=== PATIENT | female | born 1955 | race Hispanic/Latino ===

== ENCOUNTER 2017-05-13 06:02 | Day surgery (SDC) | payer MEDICARE ==
[2017-05-01 10:49] VITALS: BMI 20.5
[2017-05-13] MEDS ORDERED: Iohexol 240 (50 ml) ONE (07:20)
[2017-05-13] MEDS ORDERED: cefTRIAXone (Rocephin) 1 gm Inj ONE (07:20)
[2017-05-13] MEDS ORDERED: Propofol 10 mg/ml Inj (20 ML) ONE (08:00)
[2017-05-13] MEDS ORDERED: Lidocaine 1% Inj (20ml) ONE (08:01)
[2017-05-13 08:55] VITALS: TEMP 97.4
[2017-05-13 09:42] VITALS: BP 158/82; PULSE 57; RESP 18; O2SAT 93
[2017-05-13] MEDS: Tmp-Smz 800 mg-160 mg DS Tab PO SCH ×2 (10:15→10:18)
--- NOTE | 2017-05-13 11:35 | RAD ---
PROCEDURE: Less than 1 hr fluoroscopic time utilized during performance of the procedure. HISTORY: Bilateral retrograde pyelograms COMPARISON: None TECHNIQUE: Total fluoroscopic time (continuous mode) utilized during the procedure: 43.5 seconds. Total exam DLP: (mGy): 6.06 FINDINGS: Bilateral retrograde studies performed. No gross abnormalities identified. IMPRESSION: Less than 1 hr fluoroscopic time utilized during performance of the procedure.
--- NOTE | 2017-05-13 15:30 | OP ---
PROCEDURE DATE: 05/13/2017 PREOPERATIVE DIAGNOSIS: Microhematuria. POSTOPERATIVE DIAGNOSIS: Bladder neck cyst. PROCEDURE: Cystoscopy, excision of bladder neck cyst, and bilateral retrograde ureteral pyelogram. SURGEON: Lang Chavez MD ANESTHESIA: LMA. DESCRIPTION OF OPERATION: After adequate LMA anesthesia was given, the patient was placed lithotomy, prepped and draped in usual manner. A 22-Wolof cystourethroscope was introduced. Inspection showed a yellowish cyst at the bladder neck on the left side. The bladder itself showed no tumors, foreign bodies or stones. Orifices were normal in appearance and location, and with clear efflux. No significant trabeculation. Using cold cup forceps, the cyst was excised and the base cauterized. It had a yellowish inferior and no other abnormalities noted. An occlusion to catheter was placed at the opening of the left ureteral orifice. Ureteropyelogram was carried out, which appeared normal to me with no filling defects. A similar procedure was done on the right side also, appeared normal with no filling defects. There was no evidence any bleeding. The area of the bladder neck was reinspected. There was no evidence of any bleeding. Without any irrigation running, the bladder was drained, the cystoscope was removed, and the patient was awake and brought to the recovery room good condition. Lang Chavez MD
== END 2017-05-13 11:30 | disposition home or self-care (01) ==
LOC: SDS 06:02
PROVIDERS: ATTEND Urology
DX: N32.89 Other specified disorders of bladder (principal); R31.29 Other microscopic hematuria; I10 Essential (primary) hypertension; F17.210 Nicotine dependence, cigarettes, uncomplicated; J43.9 Emphysema, unspecified; E03.9 Hypothyroidism, unspecified
CPT/HCPCS: 52005; 52224; 74420; 88305; C1758; J2175; J2405; J2704; J3010; J7120; Q9966

== ENCOUNTER 2017-06-27 19:05 | Emergency (ER) | payer MEDICARE ==
[2017-06-27 19:05] VITALS: BMI 24.8
[2017-06-27 20:02] VITALS: RESP 17
--- NOTE | 2017-06-27 20:39 | ED PDOC ---
Arrival/HPI - General Chief Complaint: Back Pain Time Seen by Provider: 06/27/17 19:12 Historian: Patient - History of Present Illness Narrative History of Present Illness (Text): you were treated in the ED today for having lower lumbar back pain after picking up a child about 2 days ago and, and you were otherwise without any trauma/fall/nausea/vomiting/headache/dizziness/difficulty breathing/chest pain/ abdomen pain/numbness/tingling/loss of limb or bladder or bowel function/ thoughts to harm yourself or others or hallucinations. 06/27/17 20:36 Time/Duration: Other (2 days) Symptom Onset: Gradual Symptom Course: Unchanged Quality: Aching Severity Level: 2 Activities at Onset: Rest Context: Sitting Past Medical History - Provider Review Nursing Documentation Reviewed: Yes - Travel History Have you recently traveled outside [place] w/in the past 3 mons?: No - Infectious Disease Hx of Infectious Diseases: None - Tetanus Immunization Tetanus Immunization: Unknown - Cardiac Hx Cardiac Disorders: Yes Hx Hypertension: Yes - Pulmonary Hx Respiratory Disorders: Yes Hx Chronic Obstructive Pulmonary Disease (COPD): Yes - Neurological Hx Neurological Disorder: No - HEENT Hx HEENT Disorder: Yes Hx Cataracts: Yes - Renal Hx Renal Disorder: No - Endocrine/Metabolic Hx Endocrine Disorders: Yes Hx Hypothyroidism: Yes - Hematological/Oncological Hx Blood Transfusions: No - Integumentary Hx Dermatological Disorder: No - Musculoskeletal/Rheumatological Hx Musculoskeletal Disorders: Yes Hx Back Pain: Yes - Gastrointestinal Hx Gastrointestinal Disorders: No - Genitourinary/Gynecological Hx Genitourinary Disorders: No - Psychiatric Hx Psychophysiologic Disorder: Yes Hx Anxiety: Yes Hx Depression: Yes Hx Substance Use: No - Surgical History Hx Eye Surgery: Yes (CATARACT) Hx Orthopedic Surgery: Yes (CERVICAL SPINE) Other/Comment: CYSTOSCOPY - Anesthesia Hx Anesthesia: Yes - Suicidal Assessment Feels Threatened In Home Enviroment: No Family/Social History - Physician Review Nursing Documentation Reviewed: Yes Family/Social History: No Known Family HX Smoking Status: Former Smoker Hx Alcohol Use: No Hx Substance Use: No Substance used: Marijuana Hx Substance Use Treatment: No Allergies/Home Meds Allergies/Adverse Reactions: Allergies codeine Allergy (Intermediate, Verified 06/27/17 19:10) PAIN ABD PAIN Penicillins Allergy (Intermediate, Verified 06/27/17 19:10) RASH HIVES Home Medications: Home Meds Medication Instructions Recorded Confirmed Amitriptyline [Elavil] 75 mg PO HS 07/12/15 06/27/17 DULoxetine [Cymbalta] 60 mg PO BID 07/12/15 06/27/17 Diazepam 10 mg PO TID 07/12/15 06/27/17 Levothyroxine Sodium 100 mcg PO QAM 07/12/15 06/27/17 Losartan/Hydrochlorothiazide 1 tab PO QAM 07/12/15 06/27/17 [Losartan-Hctz 100-12.5 mg Tab] Albuterol 0.042% [Albuterol 0.042% 3 ml IH PRN PRN 05/24/16 06/27/17 Inhal Daija (1.25mg/3ml) UD] Atorvastatin [Lipitor] 40 mg PO DAILY 07/03/16 06/27/17 Acetaminophen/Hydrocodone Bi 1 tab PO QPM PRN 05/01/17 06/27/17 [Vicodin 300 mg-5 mg] Lurasidone HCl [Latuda] 20 mg PO QAM 05/01/17 06/27/17 Potassium Chloride [Klor-Con 10 meq PO DAILY 05/01/17 06/27/17 Sprinkle] Review of Systems - Review of Systems Constitutional: Normal Eyes: Normal ENT: Normal Respiratory: Normal Cardiovascular: Normal Gastrointestinal: Normal Genitourinary Female: Normal Musculoskeletal: Back Pain Skin: Normal Neurological: Normal Endocrine: Normal Hemo/Lymphatic: Normal Psychiatric: Normal Physical Exam Vital Signs Reviewed: Yes Vital Signs Temp Pulse Resp BP Pulse Ox 06/27/17 22:50 98.1 F 78 17 177/81 H 98 06/27/17 19:13 98.2 F 72 17 185/104 H 89 L Temperature: Afebrile Blood Pressure: Hypertensive Pulse: Regular Respiratory Rate: Normal Appearance: Positive for: Well-Appearing, Non-Toxic, Comfortable Pain Distress: None Mental Status: Positive for: Alert and Oriented X 3 - Systems Exam Head: Present: Atraumatic, Normocephalic Pupils: Present: PERRL Extroacular Muscles: Present: EOMI Conjunctiva: Present: Normal Ears: Present: Normal Mouth: Present: Moist Mucous Membranes Pharnyx: Present: Normal Nose (External): Present: Atraumatic Nose (Internal): Present: Normal Inspection Neck: Present: Normal Range of Motion Respiratory/Chest: Present: Clear to Auscultation, Good Air Exchange Cardiovascular: Present: Regular Rate and Rhythm Abdomen: Present: Other (no pulsatile masses). No: Tenderness, Distention, Normal Bowel Sounds, Peritoneal Signs, Rebound, Guarding, McBurney's Point Tender, Rovsing's Sign Present, Hernias, Feeding Tubes, Ostomy Tubes, Mass/ Organomegaly, Scars Back: Present: Other (no cervical or thoracic spinal or paraspinal tenderness but mild lumbar discomfort. no erythema/fluctuance.) Upper Extremity: Present: Normal Inspection Lower Extremity: Present: Normal Inspection Neurological: Present: GCS=15, CN II-XII Intact, Speech Normal, Motor Func Grossly Intact Skin: Present: Warm, Normal Color Psychiatric: Present: Alert, Oriented x 3, Normal Insight, Normal Concentration Medical Decision Making ED Course and Treatment: you were treated in the ED today for having lower lumbar back pain after picking up a child about 2 days ago and, and you were otherwise without any trauma/fall/nausea/vomiting/headache/dizziness/difficulty breathing/chest pain/ abdomen pain/numbness/tingling/loss of limb or bladder or bowel function/ thoughts to harm yourself or others or hallucinations. you were sitting up, comfortable, alert/oriented, good strength/sensation, no abdomen tenderness, pink skin, no cervical or thoracic spinal or paraspinal tenderness but mild lumbar discomfort, without redness .no fever temp 98.2, stable heart rate 72, stable breathing rate 17, excellent oxygen level 98 room air, elevated blood pressure 185/104 which we recommend followup primary care 2-3 days repeat and determine further treatment, radiology ct lumbar no fracture, percocet given and you stated tolerated in the past, you requested toradol as it has been helpful in the past, observation done in the ED, counselled to rest and use heating pad, and discharged home with family who is driving. 1. recommend followup primary care 1-2 days to determine further care, spine clinic referral/ [facility], referral to surgery clinic for adrenal gland adenoma to ensure no cancer development, referral to urology for mild bladder wall thickening findings to ensure no complications/cancer development. 2. recommend continue your vicadin as previously prescribed in the past. 3. if any worsening pain, fever, chills, nausea, vomiting, any medical condition then return to the ED. 06/27/17 20:40 EXAM:CT Lumbar Spine Without Intravenous Contrast Dictated and Authenticated by: James Gan MD 06/27/2017 9:57 PM IMPRESSION: 1. No fracture. If back pain persists, consider MRI for further evaluation. 2. Mild cystitis vs underdistention. Correlate with urinalysis. 3. Incidental/non-acute findings are described above. 06/27/17 22:55 - RAD Interpretation Radiology Orders: 06/27/17 20:34 LUMBAR SPINE W/O CONTRAST [CT] Stat Electrical Products Engineer: Radiologist - Medication Orders Current Medication Orders: Discontinued Medications Acetaminophen (Tylenol 325mg Tab) 975 mg PO STAT STA Stop: 06/27/17 20:42 Last Admin: 06/27/17 20:53 Dose: Not Given Non-Admin Reason: Patient Refused Oxycodone/Acetaminophen (Percocet 5/325 Mg Tab) 1 tab PO STAT STA Stop: 06/27/17 21:31 Last Admin: 06/27/17 21:45 Dose: 1 tab MAR Pain Assessment Document 06/27/17 21:45 IT (Rec: 06/27/17 21:45 IT [id number]) Pain Reassessment Is this a pain reassessment? Yes Sleep Is patient sleeping during reassessment? No Pain Scale Used Pain Scale Used Numeric Location Left, Right or Bilateral Bilateral Pain Location Body Site Back Disposition/Present on Arrival - Present on Arrival Any Indicators Present on Arrival: No History of DVT/PE: No History of Uncontrolled Diabetes: No Urinary Catheter: No History of Decub. Ulcer: No History Surgical Site Infection Following: None - Disposition Have Diagnosis and Disposition been Completed?: Yes Diagnosis: Lumbar pain Disposition: HOME/ ROUTINE Disposition Time: 22:58 Patient Plan: Discharge Condition: IMPROVED Additional Instructions: you were treated in the ED today for having lower lumbar back pain after picking up a child about 2 days ago and, and you were otherwise without any trauma/fall/nausea/vomiting/headache/dizziness/difficulty breathing/chest pain/ abdomen pain/numbness/tingling/loss of limb or bladder or bowel function/ thoughts to harm yourself or others or hallucinations. you were sitting up, comfortable, alert/oriented, good strength/sensation, no abdomen tenderness, pink skin, no cervical or thoracic spinal or paraspinal tenderness but mild lumbar discomfort, without redness .no fever temp 98.2, stable heart rate 72, stable breathing rate 17, excellent oxygen level 98 room air, elevated blood pressure 185/104 which we recommend followup primary care 2-3 days repeat and determine further treatment, radiology ct lumbar no fracture, percocet given and you stated tolerated in the past, you requested toradol as it has been helpful in the past, observation done in the ED, counselled to rest and use heating pad, and discharged home with family who is driving. 1. recommend followup primary care 1-2 days to determine further care, spine clinic referral/ [facility], referral to surgery clinic for adrenal gland adenoma to ensure no cancer development, referral to urology for mild bladder wall thickening findings to ensure no complications/cancer development. 2. recommend continue your vicadin as previously prescribed in the past. 3. if any worsening pain, fever, chills, nausea, vomiting, any medical condition then return to the ED. Referrals: Nicole Mayen, [Primary Care Provider] - Follow up with primary Forms: [place] (Irish)
[2017-06-27] MEDS ORDERED: Oxycodone/Acetaminophen 5/325 mg Tab PO STA (21:30)
--- NOTE | 2017-06-27 21:58 | CT ---
EXAM: CT Lumbar Spine Without Intravenous Contrast CLINICAL HISTORY: 62 years old, female; Pain; Low back pain; Additional info: 62yof, with lumbar pain/tenderness TECHNIQUE: Axial computed tomography images of the lumbar spine without intravenous contrast. All CT scans at this facility use one or more dose reduction techniques, viz.: automated exposure control; ma/kV adjustment per patient size (including targeted exams where dose is matched to indication; i.e. head); or iterative reconstruction technique. Coronal and sagittal reformatted images were created and reviewed. COMPARISON: CT abdomen and pelvis, 07/04/2016 FINDINGS: Vertebrae: No acute fracture. Mild facet osteoarthrosis within lower lumbar spine. Discs/spinal canal/neural foramina: Disc bulges at L3-L4, L4-L5, L5-S1 levels. Mild central canal stenosis at L3-L4. Moderate to severe central canal stenosis at L4-L5 level. Neural foraminal narrowing at L5-S1 level. Other bones/joints: Degenerative changes of RIGHT hip joint, incompletely imaged. Soft tissues: Unremarkable. Vasculature: Atherosclerotic disease of visualized arteries. Adrenals: LEFT adrenal adenoma. Stomach and bowel: Colonic diverticula. Bladder: Apparent mild bladder wall thickening. Incomplete distention, limiting evaluation. IMPRESSION: 1. No fracture. If back pain persists, consider MRI for further evaluation. 2. Mild cystitis vs underdistention. Correlate with urinalysis. 3. Incidental/non-acute findings are described above.
[2017-06-27 22:50] VITALS: BP 177/81; PULSE 78; TEMP 98.1; O2SAT 98
== END 2017-06-27 23:11 | disposition home or self-care (01) ==
LOC: ED 19:05
DX: M54.5 Low back pain (principal)
CPT/HCPCS: 72131; 96372; 99283; J1885